=== PATIENT | female | born 1990 | race Caucasian/White ===

== ENCOUNTER 2022-04-13 21:18 | Inpatient (IN) ==
[2022-04-13] MEDS ORDERED: Buffered Lidocaine 1% SYRIN 1 ml INTRADERM ONE (22:21)
[2022-04-13] MEDS ORDERED: Lactated Ringers 1000 ml BAG 1,000 ML IV ONE (22:21)
[2022-04-13 22:40] LABS: ABS Eosinophils 0.1 10^3/ul (0-0.6); ABS Lymphocytes 1.6 10^3/ul (1.0-4.8); ABS Monocytes 0.6 10^3/ul (0-0.8); ABS Neutrophils 3.7 10^3/ul (1.5-7.7); Hematocrit 37 % (35-47); Hemoglobin 12.5 g/dL (12.0-16.0); Lymphocyte % 26.7 %; Mean Corpuscular HGB Conc 34 g/dL (31-36); Mean Corpuscular Hemoglobin 30 pg (27-31); Mean Corpuscular Volume 89 fL (80-97); Platelet Count 158 10^3/uL (150-450); Red Blood Count 4.14 10^6 /uL (3.70-4.87); Red Cell Distribution Width 13 % (10-15); White Blood Count 5.9 10^3/uL (3.5-10.8)
[2022-04-13 22:57] LABS: Urine Benzodiazepine Screen None Detected (None Detect); Urine Cannabinoids Screen None Detected (None Detect); Urine Opiates Screen None Detected (None Detect)
[2022-04-13] MEDS ORDERED: fentaNYL 100 mcg/2 ml 50 MCG/ML VIAL IV SLOW PU ONE (22:59)
[2022-04-13] MEDS ORDERED: Penicillin G Potassium IV 3,000,000 UNITS in NS 0.9% 100 ml BAG 100 ML IVPB SCH (23:00)
[2022-04-13] MEDS ORDERED: Lactated Ringers 1000 ml BAG 1,000 ML IV SCH (23:00)
[2022-04-13] MEDS ORDERED: Penicillin G Potassium IV 5,000,000 UNITS in NS 0.9% 100 ml BAG 100 ML IVPB ONE (23:30)
[2022-04-14] MEDS ORDERED: Sodium Citrate/Citric Acid LIQ 15 ML UDC PO PRN (01:06)
[2022-04-14] MEDS ORDERED: Lactated Ringers 1000 ml BAG 1,000 ML IV ONE (01:06)
[2022-04-14] MEDS ORDERED: Phenylephrine 40 mcg/mL 10mL (400mcg) SYRINGE IV PUSH PRN ×2 (01:06)
[2022-04-14] MEDS ORDERED: OBEPIDURAL (200 ML) 200 ML EPIDURAL ONE (01:10)
[2022-04-14] MEDS ORDERED: Lactated Ringers 1000 ml BAG 1,000 ML IV SCH ×2 (02:00→13:00)
[2022-04-14] MEDS ORDERED: OBEPIDURAL (200 ML) 200 ML EPIDURAL SCH (02:00)
[2022-04-14 02:38] LABS: Urine Appearance Cloudy; Urine Bilirubin Negative (Negative); Urine Blood 1+ (Negative); Urine Color Yellow; Urine Glucose Negative (Negative); Urine Ketones Trace (Negative); Urine Nitrite Negative (Negative); Urine Protein Negative (Negative); Urine Specific Gravity 1.017 (1.002-1.030); Urine Urobilinogen Negative (Negative)
[2022-04-14 02:47] LABS: Urine Bacteria Absent (Absent); Urine Red Blood Cell 3+(>10/hpf) (Absent); Urine Squamous Epithelial Cell Present (Absent); Urine White Blood Cell Trace(0-5/hpf) (Absent)
[2022-04-14] MEDS: Penicillin G Potassium IV 3,000,000 UNITS in NS 0.9% 100 ml BAG 100 ML IVPB SCH ×4 (04:37→15:59)
[2022-04-14] MEDS ORDERED: Oxytocin in LR 20 UNITS/1,000 ML BAG IVPB SCH ×2 (08:00→13:00)
[2022-04-14] MEDS ORDERED: Lidocaine 1% MPF 5 ML VIAL ONE ×2 (12:40→17:19)
[2022-04-14] MEDS: Dibucaine 1% OINT 28.35 GM TUBE PR PRN (15:00)
[2022-04-14] MEDS: Witch Hazel PAD JAR TOPICAL PRN (15:00)
[2022-04-15 07:28] LABS: ABS Eosinophils 0.1 10^3/ul (0-0.6); ABS Lymphocytes 2.2 10^3/ul (1.0-4.8); ABS Monocytes 0.6 10^3/ul (0-0.8); ABS Neutrophils 5.5 10^3/ul (1.5-7.7); Eosinophil % 1.4 %; Hematocrit 35 % (35-47); Hemoglobin 11.7 g/dL (12.0-16.0); Lymphocyte % 25.9 %; Mean Corpuscular HGB Conc 34 g/dL (31-36); Mean Corpuscular Hemoglobin 30 pg (27-31); Mean Corpuscular Volume 89 fL (80-97); Mean Platelet Volume 9.1 fL (7.4-10.4); Platelet Count 150 10^3/uL (150-450); Red Blood Count 3.86 10^6 /uL (3.70-4.87); Red Cell Distribution Width 13 % (10-15); White Blood Count 8.5 10^3/uL (3.5-10.8)
[2022-04-16] MEDS: Dibucaine 1% OINT 28.35 GM TUBE PR PRN (08:35)
[2022-04-16] MEDS: Witch Hazel PAD JAR TOPICAL PRN (08:35)
[2022-04-16 09:38] VITALS: BP 130/76
== END 2022-04-16 10:53 | disposition home or self-care (01) | DRG 560 ==
LOC: MCHOBOUT 21:18 → MCHOB 22:17
PROVIDERS: ADMIT Midwife; ATTEND Midwife